=== PATIENT | female | born 2000 ===

== ENCOUNTER → 2022-09-05 | Outpatient (CLI) | payer OTHER ==
[2022-09-05 18:56] LABS: Appearance, Urine Clear (Clear); Bilirubin, Urine Neg (Neg); Blood, Urine Neg (Neg); Color, Urine Yellow (P-Yellow); Glucose Qualitative, Urine Neg (Neg); Ketones, Urine 2+ (Neg); Leukocyte Esterase, Urine Neg (Neg); Nitrite, Urine Neg (Neg); Protein, Urine Neg (Neg); Specific Gravity, Urine 1.025 (1.003-1.022); Urobilinogen, Urine NORM (Normal)
[2022-09-05 19:25] LABS: BASOPHILS ABSOLUTE AUTO 0.03 K/mm3 (0.00-0.23); BASOPHILS PERCENT AUTO 0 % (0-2); EOSINOPHILS ABSOLUTE AUTO 0.06 K/mm3 (0.00-0.68); EOSINOPHILS PERCENT AUTO 1 % (0-6); Hematocrit 37.6 % (33.0-51.0); Hemoglobin 12.2 g/dL (11.5-16.0); IMMATURE GRAN ABSOLUTE AUTO 0.03 K/mm3 (0.00-0.10); IMMATURE GRAN PERCENT AUTO 0 % (0-1); LYMPHOCYTES ABSOLUTE AUTO 2.19 K/mm3 (0.84-5.20); LYMPHOCYTES PERCENT AUTO 19 % (21-46); MONOCYTES ABSOLUTE AUTO 1.11 K/mm3 (0.16-1.47); MONOCYTES PERCENT AUTO 10 % (4-13); Mean Corpuscular HGB 21.7 pg (26.0-34.0); Mean Corpuscular HGB Conc 32.4 g/dL (31.5-36.5); Mean Corpuscular Volume 67 fL (80-100); NEUTROPHILS ABSOLUTE AUTO 7.98 K/mm3 (1.96-9.15); NEUTROPHILS PERCENT AUTO 70 % (41-73); Platelet Count 274 K/mm3 (150-400); RDW Coefficient Variation 15.1 % (11.7-14.2); RDW Standard Deviation 35.6 fL (35.1-46.3); Red Blood Cell Count 5.63 M/mm3 (3.80-5.20)
[2022-09-05 19:34] LABS: Mean Platelet Volume 10.8 fL (9.1-12.4)
[2022-09-06 08:11] LABS: HIV AB/P24 AG SCREEN Non Reactive (Non Reactive)
[2022-09-06 10:11] LABS: HBSAG SCREEN Negative (Negative)
== END | disposition home or self-care (01) ==
LOC: LAB SHORT 16:00
PROVIDERS: Registered Nurse Community Health
DX: Z34.91 Encounter for supervision of normal pregnancy, unspecified, first trimester (principal)
CPT/HCPCS: 80055; 81003; 84443; 87086; 87389

== ENCOUNTER → 2022-09-26 | Outpatient (CLI) | payer OTHER ==
[2022-09-29 05:09] LABS: CHLAMYDIA TRACHOMATIS, NAA Negative (Negative)
== END | disposition home or self-care (01) ==
LOC: LAB 16:40 → LAB SHORT 16:40
PROVIDERS: Registered Nurse Community Health
DX: Z34.91 Encounter for supervision of normal pregnancy, unspecified, first trimester (principal)
CPT/HCPCS: 87491; 87591

== ENCOUNTER → 2023-02-05 | Outpatient (CLI) | payer OTHER ==
[2023-02-06 11:12] LABS: Hemoglobin 11.3 g/dL (11.5-16.0)
== END | disposition home or self-care (01) ==
LOC: LAB SHORT 16:15 → LAB 16:15
PROVIDERS: Registered Nurse Community Health
DX: Z34.02 Encounter for supervision of normal first pregnancy, second trimester (principal)
CPT/HCPCS: 82950; 85014; 85018

== ENCOUNTER 2023-03-28 19:19 | Inpatient (IN) | payer OTHER ==
[~2023-03-28] VITALS: Ht 157.5 cm; Wt 83.6 kg
[~2023-03-28 19:19] MED LIST: PRENATAL TABLE1 EAC2 PO
[2023-03-28 19:49] VITALS: BP 128/78
[2023-03-28 20:14] VITALS: BP 133/84
[2023-03-28 20:14] LABS: Creatinine, Urine Random 36.3 mg/dL (27.00-270.00); Protein, Urine Random 9.9 mg/dL (0.0-11.9); Protein/Creat Ratio, Ur Random 0.3
[2023-03-28 20:20] VITALS: BP 137/90
[2023-03-28 20:23] LABS: BASOPHILS ABSOLUTE AUTO 0.02 K/mm3 (0.00-0.23); BASOPHILS PERCENT AUTO 0 % (0-2); EOSINOPHILS ABSOLUTE AUTO 0.12 K/mm3 (0.00-0.68); EOSINOPHILS PERCENT AUTO 1 % (0-6); Hematocrit 35.3 % (33.0-51.0); Hemoglobin 11.3 g/dL (11.5-16.0); IMMATURE GRAN ABSOLUTE AUTO 0.05 K/mm3 (0.00-0.10); IMMATURE GRAN PERCENT AUTO 0 % (0-1); LYMPHOCYTES ABSOLUTE AUTO 1.79 K/mm3 (0.84-5.20); LYMPHOCYTES PERCENT AUTO 13 % (21-46); MONOCYTES PERCENT AUTO 8 % (4-13); Mean Corpuscular HGB 21.5 pg (26.0-34.0); Mean Corpuscular Volume 67 fL (80-100); NEUTROPHILS ABSOLUTE AUTO 10.45 K/mm3 (1.96-9.15); NEUTROPHILS PERCENT AUTO 77 % (41-73); Platelet Count 224 K/mm3 (150-400); RDW Coefficient Variation 14.5 % (11.7-14.2); RDW Standard Deviation 33.6 fL (35.1-46.3); Red Blood Cell Count 5.26 M/mm3 (3.80-5.20); White Blood Cell Count 13.53 K/mm3 (4.00-11.30)
[2023-03-28 20:32] VITALS: BP 122/72
[2023-03-28 20:41] LABS: Albumin, Blood 2.7 g/dL (3.4-5.0); Albumin/Globulin Ratio 0.7 (0.8-1.8); Bilirubin, Total 0.1 mg/dL (0.1-1.0); Bun/Creatinine Ratio 14.8 (12.0-20.0); Creatinine, Blood 0.54 mg/dL (0.40-1.00); Total Protein, Blood 6.7 g/dL (6.4-8.2)
--- NOTE | 2023-03-28 23:15 | NUR ---
ASSUMED CARE OF PT. REPORT RECEIVED FROM JOHN PEGUERO.
[2023-03-28 23:55] VITALS: BP 116/63
[2023-03-29] VITALS (9 sets, daily range): BP systolic 116–140; BP diastolic 65–87
--- NOTE | 2023-03-29 07:56 | NUR ---
REACTIVE NST THIS MORNING, BASELINE 135 WITH 15X15 ACCELS, NO DECELS. MILD UCS NOTED 2-4 MIN APART, PALPATE MILD AND PT DENIES FEELING ANY OF THEM OR KNOWING SHE WAS HAVING THEM. SHE STATES THAT SHE JUST THOUGHT IT WAS HER BABY MOVING.
--- NOTE | 2023-03-29 11:55 | NUR ---
DISCUSSED PLAN OF CARE WITH PATIENT AND LOLIS GONZALEZ. THE PLAN WILL BE TO REPEAT CBC, CMP AND PCR NOW. CNM IS SIGNING OUT TO DR MASSEY AND THE PLAN WILL BE TO KEEP PATIENT FOR MINIMUM OF 24 HOURS. IF BPS REMAINS STABLE AND LABS WNL, THE PATIENT WILL BE ABLE TO DC HOME UNTIL HER INDUCTION DATE NEXT WEEK. LOLIS DISCUSSED PLAN WITH DR GUSTAFSON FROM [facility] IN [place] AND IS IN AGREEMENT WITH THIS PLAN AND TO DELIVER PATIENT AT 37 WEEKS. ORDERS FOR JOHN LAI TO CALL DR MASSEY WITH BPS AND PATIENT STATUS AND HE WILL DETERMINE IF PATIENT IS STABLE TO DC HOME UNTIL INDUCTION OF LABOR.
[2023-03-29 12:22] LABS: BASOPHILS ABSOLUTE AUTO 0.04 K/mm3 (0.00-0.23); BASOPHILS PERCENT AUTO 0 % (0-2); EOSINOPHILS ABSOLUTE AUTO 0.11 K/mm3 (0.00-0.68); EOSINOPHILS PERCENT AUTO 1 % (0-6); Hematocrit 35.9 % (33.0-51.0); Hemoglobin 11.7 g/dL (11.5-16.0); IMMATURE GRAN ABSOLUTE AUTO 0.03 K/mm3 (0.00-0.10); IMMATURE GRAN PERCENT AUTO 0 % (0-1); LYMPHOCYTES PERCENT AUTO 15 % (21-46); MONOCYTES ABSOLUTE AUTO 1.15 K/mm3 (0.16-1.47); MONOCYTES PERCENT AUTO 10 % (4-13); Mean Corpuscular HGB 21.9 pg (26.0-34.0); Mean Corpuscular HGB Conc 32.6 g/dL (31.5-36.5); Mean Corpuscular Volume 67 fL (80-100); NEUTROPHILS ABSOLUTE AUTO 8.43 K/mm3 (1.96-9.15); NEUTROPHILS PERCENT AUTO 74 % (41-73); Platelet Count 226 K/mm3 (150-400); RDW Coefficient Variation 14.6 % (11.7-14.2); RDW Standard Deviation 34.1 fL (35.1-46.3); Red Blood Cell Count 5.35 M/mm3 (3.80-5.20); White Blood Cell Count 11.46 K/mm3 (4.00-11.30)
[2023-03-29 12:44] LABS: Albumin, Blood 2.7 g/dL (3.4-5.0); Albumin/Globulin Ratio 0.7 (0.8-1.8); Bilirubin, Total 0.2 mg/dL (0.1-1.0); Bun/Creatinine Ratio 11.5 (12.0-20.0); Calcium, Blood 8.9 mg/dL (8.5-10.1); Creatinine, Blood 0.43 mg/dL (0.40-1.00); Globulin, Blood 3.9 g/dL (2.2-4.0); Potassium, Blood 4.2 mmol/L (3.5-5.5); Total Protein, Blood 6.6 g/dL (6.4-8.2)
[2023-03-29 14:08] LABS: Protein/Creat Ratio, Ur Random 0.4
--- NOTE | 2023-03-29 14:28 | NUR ---
dr mccallum notified of pcr and lab results, will have discussion with patient this afternoon regarding plan.
--- NOTE | 2023-03-29 20:17 | NUR ---
DISCHARGE TEACHING COMPLETED, ALL QUESTIONS AND CONCERNS ANSWERED. PT EDUCATED ON S/SX TO MONITOR FOR, SUCH INCREASED SWELLING, HEADACHE, VISUAL CHANGES, AND EPIGASTRIC PAIN. PT VERBALIZES UNDERSTANDING TO CALL/COME BACK TO [facility] WITH ANY CONCERNS OR CHANGES. PT EDUCATED TO BE ON STRICT BEDREST AT HOME AND TO FOLLOW A LOW SODIUM DIET, PT VERBALIZES UNDERSTANDING. IV REMOVED. PT TO CALL BHARATI ON Saturday TO FOLLOW UP OVER PHONE AND TO RETURN TO [facility] 04/02/13, AT 0700 FOR SCHEDULED INDUCTION. PT IS DISCHARGED HOME AT THIS TIME.
== END 2023-03-29 20:24 | disposition home or self-care (01) | DRG 833 ==
LOC: OBS 19:19 → BC 19:37
PROVIDERS: ADMIT Registered Nurse Community Health
DX: O26.893 Other specified pregnancy related conditions, third trimester (principal); R03.0 Elevated blood-pressure reading, without diagnosis of hypertension; Z3A.36 36 weeks gestation of pregnancy; Z79.899 Other long term (current) drug therapy; Z67.10 Type A blood, Rh positive
CPT/HCPCS: 36415; 59025; 80053; 82570; 84156; 85025; 86850; 86900; 86901; A9270

== ENCOUNTER 2023-04-02 07:00 | Inpatient (IN) | payer OTHER ==
[~2023-04-02] VITALS: Ht 157.5 cm; Wt 83.6 kg
[2023-04-02] VITALS (41 sets, daily range): BP systolic 112–154; BP diastolic 60–99
[2023-04-02 08:24] LABS: BASOPHILS ABSOLUTE AUTO 0.04 K/mm3 (0.00-0.23); BASOPHILS PERCENT AUTO 0 % (0-2); EOSINOPHILS ABSOLUTE AUTO 0.11 K/mm3 (0.00-0.68); EOSINOPHILS PERCENT AUTO 1 % (0-6); Hematocrit 35.4 % (33.0-51.0); Hemoglobin 11.4 g/dL (11.5-16.0); IMMATURE GRAN ABSOLUTE AUTO 0.05 K/mm3 (0.00-0.10); IMMATURE GRAN PERCENT AUTO 0 % (0-1); LYMPHOCYTES ABSOLUTE AUTO 1.64 K/mm3 (0.84-5.20); LYMPHOCYTES PERCENT AUTO 13 % (21-46); MONOCYTES ABSOLUTE AUTO 1.35 K/mm3 (0.16-1.47); MONOCYTES PERCENT AUTO 11 % (4-13); Mean Corpuscular HGB 21.7 pg (26.0-34.0); Mean Corpuscular HGB Conc 32.2 g/dL (31.5-36.5); Mean Corpuscular Volume 67 fL (80-100); NEUTROPHILS ABSOLUTE AUTO 9.28 K/mm3 (1.96-9.15); NEUTROPHILS PERCENT AUTO 74 % (41-73); Platelet Count 216 K/mm3 (150-400); RDW Coefficient Variation 14.4 % (11.7-14.2); RDW Standard Deviation 33.6 fL (35.1-46.3); Red Blood Cell Count 5.25 M/mm3 (3.80-5.20); White Blood Cell Count 12.47 K/mm3 (4.00-11.30)
[2023-04-02 08:50] LABS: Albumin, Blood 2.6 g/dL (3.4-5.0); Albumin/Globulin Ratio 0.7 (0.8-1.8); Bilirubin, Total 0.2 mg/dL (0.1-1.0); Bun/Creatinine Ratio 17.1 (12.0-20.0); Calcium, Blood 8.8 mg/dL (8.5-10.1); Creatinine, Blood 0.64 mg/dL (0.40-1.00); Globulin, Blood 3.8 g/dL (2.2-4.0); Potassium, Blood 3.9 mmol/L (3.5-5.5); Total Protein, Blood 6.4 g/dL (6.4-8.2)
[2023-04-02 09:47] LABS: Creatinine, Urine Random 98.3 mg/dL (27.00-270.00); Protein, Urine Random 16.9 mg/dL (0.0-11.9); Protein/Creat Ratio, Ur Random 0.2
[2023-04-03] VITALS (7 sets, daily range): BP systolic 105–135; BP diastolic 60–84
[2023-04-03 07:08] LABS: Hematocrit 33.5 % (33.0-51.0); Hemoglobin 10.7 g/dL (11.5-16.0); Mean Corpuscular HGB 21.8 pg (26.0-34.0); Mean Corpuscular HGB Conc 31.9 g/dL (31.5-36.5); Mean Corpuscular Volume 68 fL (80-100); Platelet Count 207 K/mm3 (150-400); RDW Coefficient Variation 14.6 % (11.7-14.2); RDW Standard Deviation 34.8 fL (35.1-46.3); Red Blood Cell Count 4.91 M/mm3 (3.80-5.20); White Blood Cell Count 22.32 K/mm3 (4.00-11.30)
[2023-04-04 03:06] VITALS: BP 119/68
[2023-04-04 07:40] VITALS: BP 127/80
--- NOTE | 2023-04-04 10:11 | NUR ---
D/C HOME WITH BABY
== END 2023-04-04 10:10 | disposition home or self-care (01) | DRG 807 ==
LOC: OBS 07:00 → BC 07:20
PROVIDERS: ADMIT Registered Nurse Community Health
PROC: 10E0XZZ Delivery of Products of Conception, External Approach (ICD-10-PCS; principal; 2023-04-02)
PROC: 3E033VJ Introduction of Other Hormone into Peripheral Vein, Percutaneous Approach (ICD-10-PCS; 2023-04-02)
PROC: 0HQ9XZZ Repair Perineum Skin, External Approach (ICD-10-PCS; 2023-04-02)
PROC: 10907ZC Drainage of Amniotic Fluid, Therapeutic from Products of Conception, Via Natural or Artificial Opening (ICD-10-PCS; 2023-04-02)
PROC: 3E0R3BZ Introduction of Anesthetic Agent into Spinal Canal, Percutaneous Approach (ICD-10-PCS; 2023-04-02)
PROC: 00HU33Z Insertion of Infusion Device into Spinal Canal, Percutaneous Approach (ICD-10-PCS; 2023-04-02)
PROC: 10H07YZ Insertion of Other Device into Products of Conception, Via Natural or Artificial Opening (ICD-10-PCS; 2023-04-02)
PROC: 4A1HXCZ Monitoring of Products of Conception, Cardiac Rate, External Approach (ICD-10-PCS; 2023-04-02)
DX: O14.94 Unspecified pre-eclampsia, complicating childbirth (principal); Z37.0 Single live birth; Z3A.37 37 weeks gestation of pregnancy
CPT/HCPCS: 36415; 51702; 80053; 82570; 84156; 85025; 85027; 86850; 86900; 86901; A9270; J1885; J2590; J7120

== ENCOUNTER → 2024-03-30 | Outpatient (CLI) | payer OTHER ==
[2024-03-30 13:01] LABS: Source, Urine Voided
[2024-03-30 14:22] LABS: Appearance, Urine Hazy (Clear); Bilirubin, Urine Neg (Neg); Blood, Urine Neg (Neg); Color, Urine Yellow (P-Yellow); Glucose Qualitative, Urine Neg (Neg); Ketones, Urine Neg (Neg); Leukocyte Esterase, Urine 1+ (Neg); Nitrite, Urine Neg (Neg); Protein, Urine 1+ (Neg); Specific Gravity, Urine 1.015 (1.003-1.022); Urobilinogen, Urine NORM (Normal); pH, Urine 6.5 (5.0-8.0)
[2024-03-30 15:07] LABS: Amorphous Light (0-Heavy); Bacteria Many /hpf; Mucus Mod (0-Heavy); Squamous Epithelial Cells Many /hpf (Few)
[2024-03-30 15:08] LABS: Red Blood Cells, Urine 0-2 /hpf (0-2)
== END | disposition home or self-care (01) ==
LOC: LAB SHORT 12:00 → LAB 12:00
PROVIDERS: Registered Nurse Community Health
DX: Z34.91 Encounter for supervision of normal pregnancy, unspecified, first trimester (principal)
CPT/HCPCS: 81001; 87086

== ENCOUNTER → 2024-07-13 | Outpatient (CLI) | payer OTHER ==
[2024-07-13 17:43] LABS: Hematocrit 37.8 % (33.0-51.0); Hemoglobin 11.8 g/dL (11.5-16.0)
== END ==
LOC: LAB SHORT 17:00 → LAB 17:00
PROVIDERS: Registered Nurse Community Health
DX: Z34.93 Encounter for supervision of normal pregnancy, unspecified, third trimester (principal); Z3A.00 Weeks of gestation of pregnancy not specified
CPT/HCPCS: 82950; 85014; 85018

== ENCOUNTER → 2024-09-08 | Outpatient (CLI) | payer OTHER ==
[2024-09-08 11:34] LABS: Protein, Urine Quantitative 10.1 mg/dL (0.0-11.9)
== END ==
LOC: LAB 07:00 → LAB SHORT 07:00
PROVIDERS: Nurse Practitioner Obstetrics & Gynecology
DX: Z87.59 Personal history of other complications of pregnancy, childbirth and the puerperium (principal)
CPT/HCPCS: 81050; 84156

== ENCOUNTER → 2024-09-10 | Outpatient (CLI) | payer OTHER ==
[~2024-09-10] MED LIST changes: +ASPI81CH PO; +IBUP800 PO; +LABE100 PO
== END ==
LOC: LAB SHORT 12:55 → LAB 12:55
DX: Z34.93 Encounter for supervision of normal pregnancy, unspecified, third trimester (principal)
CPT/HCPCS: 87081; 87150

== ENCOUNTER 2024-09-18 07:02 | Inpatient (IN) | payer OTHER ==
[2024-09-18] VITALS (24 sets, daily range): BP systolic 109–142; BP diastolic 57–89
[~2024-09-18] VITALS: Ht 160 cm; Wt 84.1 kg
[~2024-09-18 07:02] MED LIST changes: -ASPI81CH PO; -IBUP800 PO; -LABE100 PO
[2024-09-18] MEDS ORDERED: Tranexamic Acid 100 ML IV SCH (07:35)
[2024-09-18] MEDS ORDERED: OXYTOCIN/RINGER'S LACTATE 500 ML IV PRN (07:35)
[2024-09-18] MEDS ORDERED: OXYTOCIN/RINGER'S LACTATE 500 ML IV SCH ×2 (07:35→18:50)
[2024-09-18] MEDS ORDERED: Methylergonovine Maleate 0.2MG / ML 1ML Amp IM PRN ×2 (07:35→18:50)
[2024-09-18] MEDS ORDERED: Misoprostol 200 MCG Tab BC PRN (07:35)
[2024-09-18] MEDS ORDERED: Lactated Ringer's 1,000 ML IV PRN ×4 (07:35→10:20)
[2024-09-18] MEDS ORDERED: Oxytocin 10 Unit / ML Vial IM PRN (07:35)
[2024-09-18] MEDS ORDERED: Carboprost Tromethamine 250 MCG/ML 1ML Amp IM PRN (07:35)
[2024-09-18] MEDS ORDERED: Misoprostol 200 MCG Tab PR PRN ×2 (07:35→18:55)
[2024-09-18] MEDS ORDERED: Ondansetron HCl 2 MG / ML 2ML Vial IV PRN (07:40)
[2024-09-18] MEDS ORDERED: Calcium Carbonate 500 MG Tab Chew PO PRN (07:40)
[2024-09-18] MEDS ORDERED: Acetaminophen 500 MG Tab PO PRN (07:40)
[2024-09-18 09:07] LABS: BASOPHILS ABSOLUTE AUTO 0.03 K/mm3 (0.00-0.23); BASOPHILS PERCENT AUTO 0 % (0-2); EOSINOPHILS ABSOLUTE AUTO 0.17 K/mm3 (0.00-0.68); EOSINOPHILS PERCENT AUTO 2 % (0-6); Hematocrit 32.4 % (33.0-51.0); Hemoglobin 10.4 g/dL (11.5-16.0); IMMATURE GRAN ABSOLUTE AUTO 0.03 K/mm3 (0.00-0.10); IMMATURE GRAN PERCENT AUTO 0 % (0-1); LYMPHOCYTES ABSOLUTE AUTO 1.49 K/mm3 (0.84-5.20); LYMPHOCYTES PERCENT AUTO 16 % (21-46); MONOCYTES ABSOLUTE AUTO 0.98 K/mm3 (0.16-1.47); MONOCYTES PERCENT AUTO 11 % (4-13); Mean Corpuscular HGB 21.1 pg (26.0-34.0); Mean Corpuscular HGB Conc 32.1 g/dL (31.5-36.5); Mean Corpuscular Volume 66 fL (80-100); NEUTROPHILS ABSOLUTE AUTO 6.52 K/mm3 (1.96-9.15); NEUTROPHILS PERCENT AUTO 71 % (41-73); Platelet Count 218 K/mm3 (150-400); RDW Coefficient Variation 15.3 % (11.7-14.2); RDW Standard Deviation 35.4 fL (35.1-46.3); Red Blood Cell Count 4.94 M/mm3 (3.80-5.20); White Blood Cell Count 9.22 K/mm3 (4.00-11.30)
[2024-09-18] MEDS ORDERED: LABE100 PO ×2 (09:24)
[2024-09-18] MEDS ORDERED: ASPI81CH PO ×2 (09:24)
[2024-09-18] MEDS ORDERED: Labetalol HCL 100 MG TAB PO SCH (10:15)
[2024-09-18] MEDS ORDERED: FentaNYL 2mcg/ml-Bup 0.1% Epd 250 ML EPI PRN (10:15)
[2024-09-18] MEDS ORDERED: ePHEDrine Sulfate 50 MG/ML 1ML Injection XX PRN (10:15)
[2024-09-18] MEDS ORDERED: Ibuprofen 400 MG Tab PO PRN (18:45)
[2024-09-18] MEDS ORDERED: Measles/Mumps/Rubella Vaccine 0.5 ML Vial SC ONE (18:50)
[2024-09-18] MEDS ORDERED: Oxytocin 10 Unit / ML Vial IM ONE (18:50)
[2024-09-18] MEDS ORDERED: Lactated Ringer's 1,000 ML IV SCH (18:50)
[2024-09-18] MEDS ORDERED: Ketorolac Tromethamine 30mg Vial IV PRN (18:50)
[2024-09-18] MEDS ORDERED: Acetaminophen/Codeine 300-30 mg PO PRN (18:55)
[2024-09-18] MEDS ORDERED: Benzocaine Topical Anesthetic Spray 60GM TOP PRN (18:55)
[2024-09-18] MEDS ORDERED: Diphth,Pertuss(Acell),Tet Vac 0.5 ML VIAL IM ONE (18:55)
[2024-09-18] MEDS ORDERED: FLU VACC TS2024-25(6MOS UP)/PF 45 MCG/0.5 ML SYRINGE IM SCH (18:55)
[2024-09-18] MEDS ORDERED: Witch Hazel/Glycerin PADS TOP PRN (18:55)
[2024-09-18] MEDS ORDERED: Docusate Sodium 100 MG Cap PO PRN (18:55)
[2024-09-18] MEDS ORDERED: Acetaminophen 325 MG TABLET PO PRN (18:55)
[2024-09-19 04:51] VITALS: BP 127/76
[2024-09-19 06:00] LABS: Hemoglobin 10.3 g/dL (11.5-16.0); Mean Corpuscular HGB Conc 32.2 g/dL (31.5-36.5); Mean Corpuscular Volume 65 fL (80-100); Platelet Count 195 K/mm3 (150-400); RDW Coefficient Variation 15.3 % (11.7-14.2); RDW Standard Deviation 35.2 fL (35.1-46.3); White Blood Cell Count 16.78 K/mm3 (4.00-11.30)
[2024-09-19 08:16] VITALS: BP 123/77
[2024-09-19] MEDS ORDERED: Prenatal Vit/FE Fumarate/FA 1 Tab PO SCH (09:00)
[2024-09-19] MEDS ORDERED: IBUP800 PO ×2 (18:59)
[2024-09-19 21:05] VITALS: BP 125/79
== END 2024-09-19 21:17 | disposition home or self-care (01) | DRG 807 ==
LOC: OBS 07:02 → BC 07:03 → OBS 08:12 → BC 19:30
PROVIDERS: ADMIT Registered Nurse Community Health
PROC: 10E0XZZ Delivery of Products of Conception, External Approach (ICD-10-PCS; principal; 2024-09-18)
PROC: 10907ZC Drainage of Amniotic Fluid, Therapeutic from Products of Conception, Via Natural or Artificial Opening (ICD-10-PCS; 2024-09-18)
PROC: 4A1HXCZ Monitoring of Products of Conception, Cardiac Rate, External Approach (ICD-10-PCS; 2024-09-18)
PROC: 00HU33Z Insertion of Infusion Device into Spinal Canal, Percutaneous Approach (ICD-10-PCS; 2024-09-18)
PROC: 3E0R3BZ Introduction of Anesthetic Agent into Spinal Canal, Percutaneous Approach (ICD-10-PCS; 2024-09-18)
DX: O13.4 Gestational [pregnancy-induced] hypertension without significant proteinuria, complicating childbirth (principal); Z37.0 Single live birth; Z3A.37 37 weeks gestation of pregnancy
CPT/HCPCS: 36415; 51702; 85025; 85027; 86850; 86900; 86901; A9270; J1885; J2590; J7120

== ENCOUNTER 2025-06-26 13:03 | Emergency (ER) | payer OTHER ==
[~2025-06-26] VITALS: Ht 160 cm; Wt 74.8 kg
[~2025-06-26 13:03] MED LIST changes: +ASPI81CH PO; +IBUP800 PO; +LABE100 PO
[2025-06-26 14:25] LABS: Alanine Aminotransfer (ALT/SGP 22.0 U/L (12-78); Albumin, Blood 4.4 g/dL (3.4-5.0); Albumin/Globulin Ratio 1.3 (0.8-1.8); Anion Gap 9.0 mmol/L (3-11); Aspartate Aminotrans (AST/SGOT 15.0 U/L (12-37); Beta HCG, Quantitative, Serum 158.0 mIU/mL (0-3); Bilirubin, Total 0.4 mg/dL (0.1-1.0); Blood Urea Nitrogen 10.0 mg/dL (8-24); CO2, Blood 27.0 mmol/L (21-32); Calcium, Blood 9.0 mg/dL (8.5-10.1); Chloride, Blood 106.0 mmol/L (98-108); Creatinine, Blood 0.58 mg/dL (0.40-1.00); Globulin, Blood 3.5 g/dL (2.2-4.0); Glucose, Blood 117.0 mg/dL (70-99); Potassium, Blood 3.5 mmol/L (3.5-5.5); Sodium, Blood 138.0 mmol/L (136-145); Total Protein, Blood 7.9 g/dL (6.4-8.2)
[2025-06-26 14:47] LABS: BASOPHILS ABSOLUTE AUTO 0.03 K/mm3 (0.00-0.23); BASOPHILS PERCENT AUTO 0 % (0-2); EOSINOPHILS ABSOLUTE AUTO 0.10 K/mm3 (0.00-0.68); EOSINOPHILS PERCENT AUTO 1 % (0-6); Hematocrit 41.0 % (33.0-51.0); Hemoglobin 12.8 g/dL (11.5-16.0); IMMATURE GRAN ABSOLUTE AUTO 0.02 K/mm3 (0.00-0.10); IMMATURE GRAN PERCENT AUTO 0 % (0-1); LYMPHOCYTES ABSOLUTE AUTO 2.55 K/mm3 (0.84-5.20); LYMPHOCYTES PERCENT AUTO 33 % (21-46); MONOCYTES ABSOLUTE AUTO 0.61 K/mm3 (0.16-1.47); MONOCYTES PERCENT AUTO 8 % (4-13); Mean Corpuscular HGB Conc 31.2 g/dL (31.5-36.5); Mean Corpuscular Volume 69 fL (80-100); NEUTROPHILS ABSOLUTE AUTO 4.35 K/mm3 (1.96-9.15); NEUTROPHILS PERCENT AUTO 57 % (41-73); NRBC ABSOLUTE 0.00 K/mm3 (0.00-0.02); NRBC Auto 0.0 /100 WBC (0.0-0.2); Platelet Count 370 K/mm3 (150-400); RDW Coefficient Variation 15.1 % (11.7-14.2); RDW Standard Deviation 36.3 fL (35.1-46.3)
[2025-06-26 15:00] VITALS: BP 118/72
== END 2025-06-26 15:45 | disposition home or self-care (01) ==
LOC: ER 13:03
PROVIDERS: Student in an Organized Health Care Education/Training Program
DX: O20.0 Threatened abortion (principal); Z3A.00 Weeks of gestation of pregnancy not specified; Z79.899 Other long term (current) drug therapy
CPT/HCPCS: 76801; 80053; 84702; 85025; 99284-25